=== PATIENT | female | born 1960 | race Caucasian/White ===

== ENCOUNTER 2018-12-02 20:36 | Observation (INO) | payer OTHER, MEDICAID ==
[2018-12-02 21:26] LABS: ADD MAN DIFF? NO
[2018-12-02 21:27] LABS: WHITE BLOOD COUNT 11.5 10^3/ul (4.8-10.8)
[2018-12-02 21:27] LABS: BASOPHIL # 0.1 10^3/ul (0.0-0.1); BASOPHILS % 0.8 % (0.0-2.0); EOSINOPHILS # 0.2 10^3/ul (0.0-0.5); EOSINOPHILS % 1.7 % (0.0-7.0); HEMATOCRIT 39.2 % (37.0-47.0); HEMOGLOBIN 12.7 g/dl (12.0-16.0); LYMPHOCYTES # 4.8 10^3/ul (0.8-2.9); LYMPHOCYTES % 42.1 % (15.0-51.0); MEAN CORPUSCULAR HEMOGLOBIN 24.4 pg (29.0-33.0); MEAN CORPUSCULAR HGB CONC 32.4 g/dl (32.0-37.0); MEAN CORPUSCULAR VOLUME 75.2 fl (82.0-101.0); MEAN PLATELET VOLUME 10.7 fl (7.4-10.4); MONOCYTES % 8.6 % (0.0-11.0); NEUTROPHIL # 5.3 10^3/ul (1.6-7.5); NEUTROPHILS % 46.5 % (39.0-77.0); PLATELET COUNT 362 10^3/UL (140-415); RED BLOOD COUNT 5.21 10^6/ul (4.20-5.40); RED CELL DISTRIBUTION WIDTH 13.5 % (11.5-14.5)
[2018-12-02] MEDS: ASPIRIN 81 MG TAB PO (21:27)
[2018-12-02] MEDS: NITROGLYCERIN 2% 1 GM OINT PKT TD (21:28)
[2018-12-02] MEDS ORDERED: NITROGLYCERIN (SL) 0.4 MG TAB SL (21:30)
[2018-12-02 21:49] LABS: ALANINE AMINOTRANSFERASE 14 IU/L (13-69); ALBUMIN 4.5 g/dl (3.3-4.9); ALBUMIN/GLOBULIN RATIO 1.15; ALKALINE PHOSPHATASE 122 IU/L (42-121); ANION GAP 12 (5-13); ASPARTATE AMINO TRANSFERASE 20 IU/L (15-46); BILIRUBIN,INDIRECT 0.1 mg/dl (0-1.1); BILIRUBIN,TOTAL 0.1 mg/dl (0.2-1.3); BLOOD UREA NITROGEN 16 mg/dl (7-20); CALCIUM 10.2 mg/dl (8.4-10.2); CARBON DIOXIDE 28 mmol/L (21-31); CHLORIDE 100 mmol/L (97-110); CREATININE 0.54 mg/dl (0.44-1.00); Estimated GFR > 60 mL/min (>60); GLUCOSE 123 mg/dl (70-220); LIPASE 293 U/L (23-300); POTASSIUM 3.3 mmol/L (3.5-5.1); SODIUM 140 mmol/L (135-144); TOTAL PROTEIN 8.4 g/dl (6.1-8.1)
[2018-12-02 22:01] LABS: TROPONIN-I < 0.012 ng/ml (0.000-0.120)
[2018-12-02] MEDS ORDERED: ACETAMINOPHEN 325 MG TAB PO (23:00)
[2018-12-02] MEDS ORDERED: ONDANSETRON 4 MG INJ IV (23:00)
[2018-12-02] MEDS: POTASSIUM CHLORIDE (SR) 20 MEQ TAB PO (23:41)
[2018-12-03] MEDS ORDERED: ONDANSETRON 4 MG INJ IV
[2018-12-03] MEDS ORDERED: HYDROCODONE/APAP (5/325) TAB PO
[2018-12-03] MEDS ORDERED: NITROGLYCERIN (SL) 0.4 MG TAB SL
[2018-12-03] MEDS ORDERED: NACL 0.9% 3 ML SYG IV
[2018-12-03] MEDS ORDERED: ALBUTEROL/IPRATROPIUM (NEB) 3 ML AMP HHN
[2018-12-03] MEDS ORDERED: ACETAMINOPHEN 325 MG TAB PO
[2018-12-03] MEDS: METOPROLOL (XL) 50 MG TAB PO (01:29)
[2018-12-03 03:39] LABS: ADD MAN DIFF? NO
[2018-12-03 04:02] LABS: ALANINE AMINOTRANSFERASE 13 IU/L (13-69); ALBUMIN 4.1 g/dl (3.3-4.9); ALBUMIN/GLOBULIN RATIO 1.02; ALKALINE PHOSPHATASE 102 IU/L (42-121); ANION GAP 10 (5-13); ASPARTATE AMINO TRANSFERASE 18 IU/L (15-46); BILIRUBIN,INDIRECT 0.2 mg/dl (0-1.1); BILIRUBIN,TOTAL 0.2 mg/dl (0.2-1.3); BLOOD UREA NITROGEN 14 mg/dl (7-20); CARBON DIOXIDE 30 mmol/L (21-31); CHLORIDE 102 mmol/L (97-110); CHOL/HDL RATIO 4.7 RATIO; CHOLESTEROL 207 mg/dl (100-200); CREATINE KINASE 41 IU/L (23-200); Estimated GFR > 60 mL/min (>60); GLUCOSE 125 mg/dl (70-220); HDL CHOLESTEROL 44 mg/dl (37-92); LDL CHOLESTEROL,CALCULATED 126 mg/dl; MAGNESIUM 1.9 mg/dl (1.7-2.5); POTASSIUM 3.6 mmol/L (3.5-5.1); SODIUM 142 mmol/L (135-144); TOTAL PROTEIN 8.1 g/dl (6.1-8.1); TRIGLYCERIDES 186 mg/dl (0-149)
[2018-12-03 04:14] LABS: CK INDEX 0.7; CK-MB 0.27 ng/ml (0.0-2.4); TROPONIN-I < 0.012 ng/ml (0.000-0.120)
[2018-12-03 04:18] LABS: BASOPHIL # 0.1 10^3/ul (0.0-0.1); EOSINOPHILS # 0.2 10^3/ul (0.0-0.5); EOSINOPHILS % 1.6 % (0.0-7.0); HEMATOCRIT 36.9 % (37.0-47.0); LYMPHOCYTES # 3.5 10^3/ul (0.8-2.9); MEAN CORPUSCULAR HEMOGLOBIN 24.4 pg (29.0-33.0); MEAN CORPUSCULAR HGB CONC 32.5 g/dl (32.0-37.0); MEAN PLATELET VOLUME 10.8 fl (7.4-10.4); MONOCYTE # 0.9 10^3/ul (0.3-0.9); MONOCYTES % 8.8 % (0.0-11.0); NEUTROPHIL # 5.2 10^3/ul (1.6-7.5); NEUTROPHILS % 53.3 % (39.0-77.0); PLATELET COUNT 346 10^3/UL (140-415); RED BLOOD COUNT 4.92 10^6/ul (4.20-5.40); RED CELL DISTRIBUTION WIDTH 13.9 % (11.5-14.5)
[2018-12-03 04:18] LABS: WHITE BLOOD COUNT 9.9 10^3/ul (4.8-10.8)
[2018-12-03] MEDS ORDERED: ENOXAPARIN 40 MG/0.4 ML SYG SC (09:00)
[2018-12-03] MEDS ORDERED: METOPROLOL (XL) 50 MG TAB PO (09:00)
[2018-12-03] MEDS: ASPIRIN 81 MG TAB PO (09:34)
[2018-12-03 09:38] LABS: CREATINE KINASE 40 IU/L (23-200)
[2018-12-03 09:49] LABS: CK INDEX 0.7; CK-MB 0.27 ng/ml (0.0-2.4); TROPONIN-I < 0.012 ng/ml (0.000-0.120)
[2018-12-03] MEDS ORDERED: ATORVASTATIN 10 MG TAB PO (21:00)
== END 2018-12-03 12:55 | disposition home or self-care (01) ==
LOC: 6WM 22:57 → E/R 20:36
DX: R07.89 Other chest pain (principal); I10 Essential (primary) hypertension; E78.5 Hyperlipidemia, unspecified; E66.9 Obesity, unspecified; Z68.34 Body mass index [BMI] 34.0-34.9, adult; E87.6 Hypokalemia
CPT/HCPCS: 36415; 71045; 80053; 80061; 82550; 82553; 83036; 83690; 83735; 84443; 84484; 85025; 93005; 93306; 99285-25; G0378